=== PATIENT | female | born 2005 ===

== ENCOUNTER 2024-06-28 00:07 | Emergency (ER) | payer BC ==
[2024-06-28 00:56] LABS: BASOPHILS ABSOLUTE AUTO 0.1 K/mm3 (0.0-0.3); BASOPHILS PERCENT AUTO 0.6 % (0.0-1.0); EOSINOPHILS ABSOLUTE AUTO 0.2 K/mm3 (0.0-0.7); EOSINOPHILS PERCENT AUTO 1.6 % (0.0-5.0); HEMATOCRIT 41.5 % (37.0-47.0); HEMOGLOBIN 14.1 gm/dl (12.0-16.0); IMMATURE GRAN ABSOLUTE AUTO 0.04 K/mm3 (0.00-0.05); IMMATURE GRAN PERCENT AUTO 0.3 % (0.0-0.4); LYMPHOCYTES ABSOLUTE AUTO 2.5 K/mm3 (2.0-8.8); LYMPHOCYTES PERCENT AUTO 20.7 % (50.0-65.0); MEAN CORPUSCULAR HEMOGLOBIN 32.3 pg (28.0-32.0); MEAN CORPUSCULAR VOLUME 95.2 fl (83.0-99.0); MEAN PLATELET VOLUME 9.5 fl (9.4-12.3); MONOCYTES ABSOLUTE AUTO 0.7 K/mm3 (0.1-1.4); MONOCYTES PERCENT AUTO 5.9 % (2.0-10.0); NEUTROPHILS ABSOLUTE AUTO 8.6 K/mm3 (1.5-8.5); NEUTROPHILS PERCENT AUTO 70.9 % (35.0-45.0); PLATELET COUNT,PLT 448 K/mm3 (150-400); RED BLOOD CELL COUNT 4.36 M/mm3 (4.10-5.30); WHITE BLOOD CELL COUNT,WBC 12.12 K/mm3 (4.5-13.5)
[2024-06-28] MEDS: Sodium Chloride 0.9% 1,000 ML IV ONE ×2 (01:01→05:00)
[2024-06-28] MEDS: Ondansetron 4 MG/2 ML SDV IVPUSH ONE ×2 (01:01→04:35)
[2024-06-28 01:02] LABS: INR 0.99; PROTHROMBIN TIME 10.5 SECONDS (9.7-12.0)
[2024-06-28 01:05] LABS: A/G RATIO 0.8 (1-2); ALBUMIN 3.5 g/dl (3.4-5.0); ANION GAP 10.4 (5-15); BILIRUBIN TOTAL 1.3 mg/dL (0.2-1.0); EST CRCL DRUG DOSING (CG) 91.28 mL/min; POTASSIUM,K 3.4 mEq/L (3.5-5.1); PROTEIN TOTAL,TP 7.7 g/dl (6.4-8.2)
[2024-06-28] MEDS: fentaNYL 100 MCG/2 ML SDV IVPUSH ONE ×2 (01:07→03:10)
[2024-06-28] MEDS ORDERED: Naloxone 0.4 MG/ML SDV IVPUSH PRN (02:51)
[2024-06-28] MEDS: Acetaminophen 325 MG/10.15 ML PO ONE (04:38)
[2024-06-28] MEDS: Ibuprofen Susp 100 MG/5 ML 5 ML UD Cup PO ONE (04:40)
[2024-06-28] MEDS: HYDROmorphone 1 MG/ML Syringe IVPUSH ONE (05:00)
[2024-06-28] MEDS ORDERED: HYDROmorphone 1 MG/ML Syringe IVPUSH ONE (05:47)
== END 2024-06-28 06:25 | disposition home or self-care (01) ==
LOC: JD.ED 00:07
DX: J95.830 Postprocedural hemorrhage of a respiratory system organ or structure following a respiratory system procedure (principal); Z79.899 Other long term (current) drug therapy
CPT/HCPCS: 36415; 80053; 85025; 85610; 96361; 96374; 96375; 96376; 99284; A9270; J1171; J2405; J3010; J7030; 99282

== ENCOUNTER 2025-01-27 19:22 | Emergency (ER) | payer BC ==
[2025-01-27 20:39] LABS: BASOPHILS ABSOLUTE AUTO 0.1 K/mm3 (0.0-0.2); BASOPHILS PERCENT AUTO 0.9 % (0.0-1.0); EOSINOPHILS ABSOLUTE AUTO 0.1 K/mm3 (0.0-0.4); EOSINOPHILS PERCENT AUTO 2.4 % (0.0-6.0); IMMATURE GRAN ABSOLUTE AUTO 0.01 K/mm3 (0.00-0.05); IMMATURE GRAN PERCENT AUTO 0.2 % (0.0-0.4); LYMPHOCYTES ABSOLUTE AUTO 1.9 K/mm3 (1.0-4.8); LYMPHOCYTES PERCENT AUTO 32.6 % (24.0-44.0); MEAN PLATELET VOLUME 9.2 fl (9.4-12.3); MONOCYTES ABSOLUTE AUTO 0.5 K/mm3 (0.0-0.8); MONOCYTES PERCENT AUTO 7.9 % (0.0-8.0); NEUTROPHILS ABSOLUTE AUTO 3.3 K/mm3 (1.8-7.7); NEUTROPHILS PERCENT AUTO 56.0 % (41.0-71.0); NRBC ABSOLUTE 0.00 (0.00-0.02); NRBC PERCENT 0.0 % (0.0-0.2); PLATELET COUNT,PLT 368 K/mm3 (150-400); RED BLOOD CELL COUNT 4.15 M/mm3 (4.10-5.30); WHITE BLOOD CELL COUNT,WBC 5.85 K/mm3 (3.9-11.3)
[2025-01-27 21:00] LABS: A/G RATIO 1.2 (1-2); ALANINE AMINOTRANSFERASE,ALT 21.0 U/L (14-59); ASPARTATE AMNIOTRANSFERASE,AST 19.0 U/L (15-37); BILIRUBIN TOTAL 0.8 mg/dL (0.2-1.0); BLOOD UREA NITROGEN,BUN 18.0 mg/dL (7-18); CARBON DIOXIDE,CO2 27.0 mEq/L (21-32); CHLORIDE,CL 104.0 mEq/L (98-107); CREATININE 0.7 mg/dL (0.55-1.02); EST CRCL DRUG DOSING (CG) 125.76 mL/min; ESTIMATED GFR 127.0 mL/min (>60); GLUCOSE RANDOM 93.0 mg/dL (70-99); POTASSIUM,K 3.9 mEq/L (3.5-5.1); PROTEIN TOTAL,TP 7.6 g/dl (6.4-8.2); SODIUM,NA 138.0 mEq/L (136-145)
== END 2025-01-27 21:20 | disposition home or self-care (01) ==
LOC: JD.ED 19:22
DX: K59.00 Constipation, unspecified (principal); J45.909 Unspecified asthma, uncomplicated; Z79.899 Other long term (current) drug therapy
CPT/HCPCS: 36415; 71046; 71046-26; 74018; 74018-26; 80053; 85025; 99283; 99284